=== PATIENT | female | born 1985 | race Caucasian/White ===

== ENCOUNTER → 2021-04-03 | Outpatient (CLI) | payer OTHER | LOC: HEART CORB 13:00 | DX: R07.89 Other chest pain (principal); R06.02 Shortness of breath; R94.39 Abnormal result of other cardiovascular function study ==

== ENCOUNTER 2022-04-10 16:02 | Emergency (ER) | payer OTHER ==
[2022-04-10 17:45] LABS: HEMOGLOBIN 13.6 gm/dl (12.3-15.3); RED BLOOD COUNT 4.74 M/UL (4.00-5.10); WHITE BLOOD COUNT 7.6 K/UL (4.5-11.0)
[2022-04-10 18:17] LABS: BUN/CREATININE RATIO 18 (0-10)
[2022-04-12 22:09] LABS: CHLAMYDIA TRACHOMATIS, NAA Negative (Negative); NEISSERIA GONORRHOEAE, NAA Negative (Negative)
== END 2022-04-10 20:03 | disposition left against medical advice (07) ==
LOC: ER1 16:02
PROVIDERS: Student in an Organized Health Care Education/Training Program
DX: R10.9 Unspecified abdominal pain (principal); R30.0 Dysuria
CPT/HCPCS: 80053; 81001; 83690; 84703; 85025; 87210; 99281